=== PATIENT | female | born 1975 | race African-American/Black ===

== ENCOUNTER 2024-07-06 12:32 | Outpatient (CLI) | payer BC | END 2024-07-06 12:33 | disposition home or self-care (01) | LOC: BICMRI 12:32 | PROVIDERS: ATTEND Student in an Organized Health Care Education/Training Program | DX: N64.89 Other specified disorders of breast (principal); R92.343 Mammographic extreme density, bilateral breasts; Z80.3 Family history of malignant neoplasm of breast | CPT/HCPCS: A9577; C8908 ==

== ENCOUNTER 2024-07-23 07:56 | Day surgery (SDC) | payer BC ==
[2024-07-23] MEDS ORDERED: Chloroprocaine 3% PF 20 ML VIAL FS SCH (08:30)
[2024-07-23] MEDS ORDERED: EPINEPHrine 1 MG/10 ML Abboject SYRINGE ONE (09:01)
[2024-07-23] MEDS ORDERED: Sodium Bicarbonate 0.5 MEQ/ML SDV 10 ML ONE (09:26)
[2024-07-23 10:43] VITALS: BP 144/85; TEMP 98.2
== END 2024-07-23 10:44 | disposition home or self-care (01) ==
LOC: ULT 07:56
PROVIDERS: ATTEND Student in an Organized Health Care Education/Training Program
PROC: 0HB5XZX Excision of Chest Skin, External Approach, Diagnostic (ICD-10-PCS; principal; 2024-07-23)
DX: D05.11 Intraductal carcinoma in situ of right breast (principal); N64.1 Fat necrosis of breast
CPT/HCPCS: 19083; 88305; J0171; J2401